=== PATIENT | male | born 1980 | race African-American/Black ===

== ENCOUNTER 2020-09-24 09:45 | Emergency (ER) | payer BC ==
[~2020-09-24] VITALS: Ht 180.3 cm; Wt 77.1 kg
[~2020-09-24 09:45] MED LIST: ACET500; AMOCLA875 PO; ANTIBIOTICS; CEPH500 PO; HYDACE5; HYDACE5 PO; OXYACE5T; OXYACE5T PO; RXHYDACE PO; RXOXYACE PO
== END 2020-09-24 11:50 | disposition home or self-care (01) ==
LOC: ER 09:45
DX: S61.211A Laceration without foreign body of left index finger without damage to nail, initial encounter (principal); Z79.899 Other long term (current) drug therapy; W20.8XXA Other cause of strike by thrown, projected or falling object, initial encounter; Y93.89 Activity, other specified
CPT/HCPCS: 12002; 73140; 99282-25

== ENCOUNTER 2024-02-04 10:06 | Emergency (ER) | payer BC ==
[~2024-02-04] VITALS: Ht 180.3 cm; Wt 74.8 kg
[2024-02-04 10:15] VITALS: BP 143/104
== END 2024-02-04 12:59 | disposition home or self-care (01) ==
LOC: ER 10:06
DX: S61.011A Laceration without foreign body of right thumb without damage to nail, initial encounter (principal); W22.8XXA Striking against or struck by other objects, initial encounter; Z88.1 Allergy status to other antibiotic agents; F17.200 Nicotine dependence, unspecified, uncomplicated
CPT/HCPCS: 12002; 73140; 99283-25